=== PATIENT | female | born 1965 | race Two or more races ===

== ENCOUNTER 2021-01-12 09:21 | Outpatient (REF) | payer OTHER, SELFPAY ==
--- NOTE | ~2021-01-12 | XR_ITS ---
EXAMINATION: XR KNEE STANDING BILATERAL XR KNEE, LEFT CLINICAL INFORMATION: Pain of knee COMPARISON: None TECHNIQUE: AP standing view both knees Left knee, 2 views (sunrise and lateral views) FINDINGS: The AP standing view shows normal appearance of bones, joints and soft tissues of both knees. No chondrocalcinosis. The two views of the left knee also show normal bones, joints and soft tissues. No arthritic deformity, fracture or subluxation. No knee joint effusion. No intra-articular osteochondral body. XR/XR knee LT 2V IMPRESSION: The left knee is radiographically normal.
--- NOTE | ~2021-01-12 | XR_ITS ---
EXAMINATION: XR KNEE STANDING BILATERAL XR KNEE, LEFT CLINICAL INFORMATION: Pain of knee COMPARISON: None TECHNIQUE: AP standing view both knees Left knee, 2 views (sunrise and lateral views) FINDINGS: The AP standing view shows normal appearance of bones, joints and soft tissues of both knees. No chondrocalcinosis. The two views of the left knee also show normal bones, joints and soft tissues. No arthritic deformity, fracture or subluxation. No knee joint effusion. No intra-articular osteochondral body. XR/XR knee standing BI IMPRESSION: The left knee is radiographically normal.
== END 2021-01-12 09:22 | disposition home or self-care (01) ==
LOC: HO.HOSX 09:21
PROVIDERS: Visit Provider Physician Assistant
DX: S80.02XA Contusion of left knee, initial encounter (principal)
CPT/HCPCS: 73560; 73565

== ENCOUNTER 2021-02-24 07:06 | Outpatient (REF) | payer OTHER, SELFPAY | END 2021-02-24 07:07 | disposition home or self-care (01) | LOC: HO.HOSX 07:06 | PROVIDERS: Visit Provider Physician Assistant | DX: Z13.89 Encounter for screening for other disorder (principal) ==

== ENCOUNTER 2021-04-03 08:44 | Outpatient (REF) | payer OTHER, SELFPAY | END 2021-04-03 08:45 | disposition home or self-care (01) | LOC: HO.HOSX 08:44 | PROVIDERS: Visit Provider Orthopaedic Surgery | DX: Z13.89 Encounter for screening for other disorder (principal) ==

== ENCOUNTER 2022-10-09 09:40 | Outpatient (REF) | payer OTHER, SELFPAY ==
--- NOTE | ~2022-10-09 | XR_ITS ---
EXAMINATION: XR ELBOW, RIGHT CLINICAL INFORMATION: Right elbow pain COMPARISON: None available. TECHNIQUE: AP, lateral, and oblique views of the right elbow. FINDINGS: The bones and soft tissues are normal. No fracture or joint effusion. Alignment is anatomic. Joint spaces are maintained. XR/XR elbow RT min 3V IMPRESSION: Normal right elbow.
== END 2022-10-09 09:41 | disposition home or self-care (01) ==
LOC: HO.HOSX 09:40
PROVIDERS: Visit Provider Physician Assistant
DX: M77.12 Lateral epicondylitis, left elbow (principal)
CPT/HCPCS: 20551; 73080; J1020